=== PATIENT | male | born 1990 | race Caucasian/White ===

== ENCOUNTER → 2016-09-05 | Outpatient (REF) | payer OTHER ==
[2016-09-05 09:19] LABS: % NORMAL FORMS 37 % (>=4); IMMOTILITY 3 %; NON PROGRESSIVE MOTILITY (c) 11 %; PROGRESSIVE MOTILITY (a) 86 % (>=32); SPERM ABNORMAL FORMS WBC'S NOTED; SPERM# 92.1 M/Ejac (33-46); TOTAL MOTILITY 97 % (>=40)
[2016-09-05 09:20] LABS: TOTAL FUNCTIONAL 46.5 M/Ejac.; TOTAL PROGRESSIVE SPERM 79.2 M/Ejac.
== END ==
LOC: M SMT 08:52
PROVIDERS: ATTEND Urology
DX: N50.819 Testicular pain, unspecified (principal)

== ENCOUNTER → 2016-09-06 | Outpatient (CLI) | payer OTHER ==
--- NOTE | 2016-09-06 11:20 | REP ---
Clinical: Testicular pain. Technique: Arreola scale and color Doppler evaluation using linear and curved array transducer with color Doppler evaluation. Findings: The right testicle measures 4.1 x 1.8 x 2.9 cm and demonstrates satisfactory vascularity without torsion or acute inflammatory process. However, a vague area of decreased echogenicity involves approximately one third of the testicle and exhibits multiple calcifications up to 2 mm. These findings may reflect chronic changes related to prior insult and warrants followup unless prior examinations are made available and can confirm chronicity. Incidental note is made of a 5 mm simple right epididymal head cyst. No significant right hydrocele or varicoceles are identified. The left testicle measures 5.3 x 2.3 x 2.8 cm and is normal in contour, size, echogenicity without evidence for torsion, infectious/inflammatory process, or mass lesion without similar hypoechoic regions as compared to the right testicle. Incidental note is made of a small left hydrocele as well as simple 4 mm left epididymal head cyst. Impression: 1. Vague area of decreased echogenicity with calcifications involving the right testicle warrants comparison with prior examinations if available and follow-up to exclude an active infiltrating process. No discrete discernible mass is appreciated. 2. Normal appearance to the left testicle and epididymis. 3. Simple, solitary bilateral epididymal head cysts. 4. Small left hydrocele. Signed by Isidoro Devlin MD 09/06/2016 11:12 A
== END ==
LOC: M SMT 09:36 → EDUNIT# 10:00
PROVIDERS: ATTEND Urology
DX: N50.819 Testicular pain, unspecified (principal); N43.3 Hydrocele, unspecified; N50.3 Cyst of epididymis

== ENCOUNTER → 2016-10-30 | Outpatient (CLI) | payer OTHER ==
--- NOTE | 2016-11-07 00:58 | ECWPNPC ---
PATIENT NAME: KIM GARCIA : 1990 GENDER: MALE VISIT DATE: 10/30/2016 DISCHARGE DATE: 10/30/16 1618 VISIT LOCKED DATE TIME: PHYSICIAN: HELEN RICKETTS RESOURCE: HELEN RICKETTS REASON FOR APPOINTMENT 1. TESTICULAR PAIN HISTORY OF PRESENT ILLNESS NEW PATIENT CONSULT: 26 Y/O MALE REFERRED BY [facility] FOR EVALUATION OF PERSISTENT LEFT TESTICULAR PAIN.HAS ALWAYS HAD SENSITIVITY IN THAT AREA SINCE GRADESCHOOL AFTER INJURING TESTICLE ON PLAYGROUND.HAD EXCRUCIATING FLARE UP OF LEFT TESICULAR PAIN IN 2014 AND HAD SURGERY TO REMOVE EPIDIMAL CYST.PAIN HAS GOTTEN WORSE OVER THE PAST YEAR.HAS TRIALED CELEBREX,IBUPROFEN,NAPROXEN WITHOUT IMPROVEMENT.RECENTLY STARTED LYRICA 75MG BID 2 WEEKS AGO AND HASNT NOTICED IMPROVEMENT.STARTED ON CYMBALTA 60MG BID 2 WEEKS AGO WELL.THESE MEDICATIONS ARE PRESCRIBED BY PSYCHIATRY ON FT. DRUM.HAS A SURGICAL EVALUATION NEXT WEEK.DISCUSSED TREATMENT OPTIONS TO INCLUDE ILEOINGUINAL AND GENOFEMORAL BLOCK.BRIEFLY DISCUSSED DCS.DR. ESQUIVEL CAME IN TO MEET HIM AND HE WILL F/U WITH HIM IN A FEW WEEKS.RATING LEFT GROIN /TESTICLE PAIN 7/10.REPORTING NORMAL URINATION AND BM'S.REPORTS SOME DISCOMFORT WITH SEXUAL PERFORMANCE. WHEN DID YOUR PAIN FIRST START? . BRIEFLY DESCRIBE HOW YOUR PAIN STARTED? . HOW DOES YOUR PAIN CHANGE WITH TIME? . DOES YOUR PAIN AWAKEN YOU FROM SLEEP? . HOW MANY HOURS OF SLEEP DO YOU NORMALLY GET? . ANY DIAGNOSTIC TESTING? . FACILITY WHERE TESTS WERE DONE? ____. PAIN TREATMENT TREATMENT YES CANCER HAVE YOU EVER HAD ANY TYPE OF CANCER?NO NO. PAIN SCREENING: PATIENT HAS A COMPLAINT OF ACUTE OR CHRONIC PAIN YES FALL RISK SCREENING: SCREENING :NO FALLS IN THE PAST YEAR SHEN INVENTORY: QUESTIONNAIRE ASSESSEDTBD SCORE VALUE CALCULATED TBD CURRENT MEDICATIONS TAKING CYMBALTA 60 MG CAPSULE DELAYED RELEASE PARTICLES 1 CAPSULE ORALLY TWICE A DAY TAKING LYRICA 75 MG CAPSULE 1 CAPSULE ORALLY TWICE A DAY TAKING LUNESTA 1 MG TABLET 1 TABLET IMMEDIATELY BEFORE BEDTIME ORALLY ONCE A DAY NOT-TAKING CELEBREX 100 MG CAPSULE 1 CAPSULE ORALLY BID NOT-TAKING LEVAQUIN 500 MG TABLET 1 TABLET ORALLY ONCE A DAY MEDICATION LIST REVIEWED AND RECONCILED WITH THE PATIENT PAST MEDICAL HISTORY ANXIETY DEPRESSION ALLERGIES N.K.D.A. SURGICAL HISTORY EPIDYMITIS CYST REMOVAL 10/2014 FAMILY HISTORY FATHER: ALIVE MOTHER: ALIVE 1 SISTER(S) - HEALTHY. SOCIAL HISTORY GENERAL: PAIN CLINIC PFS, CLERGY, PUBLIC HEALTH REFERRALS PFS REFERRAL NEEDED?NO CLERGY REFERRAL NEEDED?NO PUBLIC HEALTH REFERRAL NEEDED?NO WAS THE PROVIDER NOTIFIED OF ANY PERTINENT INFO?NO PSYCHOLOGICAL HX TREATMENTYES HOW OFTEN AND HOW MUCH? ANXIETY/ANGER/POSSIBLE PTSD. TREATMENT IS EVERY 2 WEEKS ALCOHOL OR DRUG TREATMENTNO PATIENT: DENIES ABUSE OR MISUSE OF ANY MEDICATION, DENIES USE OF ANY ILLEGAL SUBSTANCE INCLUDING MARIJUANA OR COCAINE. ADVANCED DIRECTIVES HEALTH CARE PROXY?NO POWER OF MACHINE INSTALLER?NO SCREENING/ASSESSMENT TOOL NUTRITION ASSESSEDYES ARE YOU ON ANY SPECIAL DIET?NO ANY SIGNIFICANT CHANGES RELATED TO EATING, WEIGHT GAIN/LOSS, OR BOWEL HABITS?YES WEIGHT GAIN IF YES, IS YOUR PRIMARY CARE PROVIDER AWARE OF THIS?YES SPECIAL NEEDS HEARING AIDS: NO , WHEELCHAIR: NO , CONTACTS: NO , CANE: NO , GLASSES: NO , WALKER: NO , LEVEL OF CARE? SELF , DENTURES: NO , REFERRALS NEEDED: NO . TOBACCO USE ARE YOU A:FORMER SMOKER ADDITIONAL FINDINGS: TOBACCO USERCHEWS TOBACCO SMOKING CESSATION INFORMATION GIVEN PATIENT REFUSES CESSATION INFORMATION VAPORNO E-CIGARETTENO CAFFEINE CAFFEINE USE?YES HOW OFTEN AND HOW MUCH? 2 CUPS COFFEE/DAY RECREATIONAL DRUG USE DRUG USE?NO PATIENT DENIES ABUSE OR MISSUSED OF ANY MEDICATION. PATIENT DENIES USE OF ANY ILLEGAL SUBSTANCE INCLUDING MARIJUANA OR COCAINE. REVIEW OF SYSTEMS CONSTITUTIONAL: ANY CHANGE IN YOUR MEDICAL CONDITION? NO . CHILLS NO . FEVER NO . INFECTION: DO YOU HAVE NEW INFECTIONS? NO . DO YOU HAVE HISTORY OF MRSA? NO . MUSCULOSKELETAL: ANY NEW PATTERNS OF PAIN OR NUMBNESS? NO . SYTEMIC LUPUS NO . GASTROENTEROLOGY: ANY NEW CHANGE IN BOWEL CONTROL? NO . BARRETTS ESOPHAGUS NO . CIRRHOSIS NO . HEPATITIS NO . LIVER FAILURE NO . ACID REFLUX NO . UNEXPLAINED WEIGHT LOSS NO . GENITOURINARY: ANY NEW CHANGE IN BLADDER CONTROL? NO . IS THERE A CHANCE YOU COULD BE ? NO . HEMATOLOGY/LYMPH: DO YOU TAKE ANY BLOOD THINNERS? (FOR EXAMPLE- COUMADIN, PLAVIX, AGGRENOX, PLATEL, PRADAXA, OR XARELTO) NO . WHEN WAS YOUR LAST DOSE? DATE: TIME: . LOW PLATELET COUNT NO . SICKLE CELL DISEASE NO . VON WILLIEBRANDS NO . FACTOR V LEIDEN NO . THALLASEMIA NO . ANEMIA NO . EASY BRUISING NO . NEUROLOGY: HAVE YOU FALLEN IN THE PAST 6 MONTHS? NO . ANY NEW EXTREMITY NUMBNESS OR WEAKNESS? NO . HEAD INJURY NO . DEMENTIA NO . CEREBRAL PALSY NO . MULTIPLE SCLEROSIS NO . DIZZINESS NO . HEADACHE NO . STROKES NO . VERTIGO NO . CARDIOLOGY: DO YOU HAVE A PACEMAKER OR DEFIBRILLATOR? NO . ANGINA NO . HEART ATTACK NO . HEART SURGERY NO . CONGESTIVE HEART FAILURE/FLUID OVERLOAD NO . CHEST PAIN NO . HIGH BLOOD PRESSURE NO . IRREGULAR HEART BEAT NO . RESPIRATORY: HAVE YOU BEEN SICK IN THE PAST WEEK? NO . FEVER NO . FLU LIKE SYMPTOMS? NO . CPAP NO . BYPAP NO . ASTHMA NO . EMPHYSEMA NO . CHRONIC LUNG DISEASES NO . SHORTNESS OF BREATH ON EXERTION NO . DO YOU USE ANY TYPE OF TOBACCO (SMOKE, SMOKELESS, CHEW)? NO . COUGH NO . SNORING NO . INTEGUMENTARY: DO YOU HAVE ANY RASHES OR OPEN SORES? NO . ALLERGIC/IMMUNO: ARE YOU ALLERGIC TO SHELLFISH OR IV DYE? NO . ANY NEW ALLERGIES? NO . PSYCHIATRIC: DO YOU HAVE THOUGHTS OF HURTING YOURSELF OR SOMEONE ELSE? NO . ARE YOU ABUSED, NEGLECTED, OR IN AN UNSAFE ENVIRONMENT? NO . ENDOCRINOLOGY: ARE YOU DIABETIC? NO . THYROID DISORDER NO . OTHER: DO YOU NEED ANY PRESCRIPTIONS? NO . IF YES, PLEASE LIST: ____ . ANY NEW PROBLEMS WITH YOUR MEDICATIONS? NO . WHEN DID YOU LAST EAT? ____ . WHEN DID YOU LAST DRINK? ____ . WHAT DID YOU LAST DRINK? ____ . NAME OF PERSON DRIVING YOU HOME? ____ . DO YOU HAVE ANY OTHER QUESTIONS OR CONCERNS NO . REVIEWED BY: PROVIDER: HELEN AYON . VITAL SIGNS WT 206.6 LBS, HT 67 IN, BMI 32.35 INDEX, BP 146/98 MM HG, HR 82 /MIN, RR 16 /MIN, TEMP 96.4 F, OXYGEN SAT % 99, NA INITIALS TL 1459, REVIEWED BY: CS. EXAMINATION GENERAL EXAMINATION: GENERAL APPEARANCE:ALERT AND ORIENTED.NO ACUTE DISTRESS.. LUNGS:LUNG SOUNDS ARE CLEAR, GOOD AIR EXCHANGE. HEART:HEART RATE REGULAR.S1S2. ABDOMEN:SOFT, NON-TENDER/NON-DISTENDED, BOWEL SOUNDS PRESENT. MALE GENITOURINARY:NORMAL EXTERNAL MALE GENITALIA., NO SCROTAL MASSES.NONTENDER.. SCROTAL [id number] LEFT HYDROCELE.SIMPLE,SOLITARY BILATERAL EPIDIDYMAL CYSTS. ASSESSMENTS LEFT TESTICULAR PAIN - N50.812 (PRIMARY) TREATMENT LEFT TESTICULAR PAIN NOTES: CONTINUE MEDICATION MANAGEMENT W FT. DRUM. PROCEDURE CODES FA211 ESTABILISHED PATIENT [facility] CHARGE DISPOSITION & COMMUNICATION FOLLOW UP [address] ESQUIVEL ELECTRONICALLY SIGNED BY NANY BILL ON 11/06/2016 AT 12:47 PM EDT DISCLAIMER : THIS IS A VISIT SUMMARY EXTRACTED FROM THE [facility] CHART. IT IS NOT A COPY OF THE [facility] PROGRESS NOTE. SELAM
== END ==
LOC: M PAIN 15:20
PROVIDERS: ATTEND Nurse Practitioner Family
DX: G89.29 Other chronic pain (principal); N50.812 Left testicular pain; F41.9 Anxiety disorder, unspecified; F32.9 Major depressive disorder, single episode, unspecified; Z87.891 Personal history of nicotine dependence; Z79.899 Other long term (current) drug therapy

== ENCOUNTER → 2016-11-28 | Outpatient (CLI) | payer OTHER ==
--- NOTE | 2016-12-12 02:38 | ECWPNPC ---
PATIENT NAME: KIM GARCIA : 1990 GENDER: MALE VISIT DATE: 11/28/2016 DISCHARGE DATE: 11/28/16 1142 VISIT LOCKED DATE TIME: PHYSICIAN: KAYLEE ESQUIVEL RESOURCE: KAYLEE ESQUIVEL REASON FOR APPOINTMENT 1. TESTICULAR PAIN HISTORY OF PRESENT ILLNESS HISTORY OF PRESENT ILLNESS: PAIN THE PATIENT DESCRIBES THE PAIN... 26 YEAR OLD MALE PATIENT WITH HISTORY OF CHRONIC TESTICULAR PAIN. PATIENT DESCRIBES THE PAIN SHARP, THROBBING, SHOOTING, AND HAVING IT ALL THE TIME WITH A PAIN SCORE OF 7/10. PATIENT STATES THAT HIS PAIN STARTED ROUGHLY 8 MONTHS AGO AND HE NOT SURE WHAT STARTED THE PAIN. PATIENT REPORTS HAVING A CYST REMOVED IN 2014 BUT THE PAIN STARTED MANY MONTHS AFTER. MR. GARCIA HAS SEEN A UROLOGIST WHO REFERRED HER TO THE PAIN CLINIC. CURRENTLY THE PATIENT IS USING CYMBALTA AND LYRICA WHICH HE STATES AID IN HIS MOOD BUT DOES NOT HELP MUCH HE WOULD LIKE WITH THE PAIN. PATIENT STATES HE HAS NOT TRIED TOPICAL PRODUCTS. PATIENT DENIES UNEXPLAINABLE WEIGHT LOSS, FEVER, CHILLS, NEW CHANGES ON HER URINARY OR BOWEL CONTROL. FALL RISK SCREENING: SCREENING :NO FALLS IN THE PAST YEAR CURRENT MEDICATIONS TAKING LYRICA 150 MG CAPSULE 1 CAPSULE ORALLY TWICE A DAY TAKING LUNESTA 1 MG TABLET 1 TABLET IMMEDIATELY BEFORE BEDTIME ORALLY ONCE A DAY TAKING CYMBALTA 30 MG CAPSULE DELAYED RELEASE PARTICLES 3 CAPSULE ORALLY DAILY NOT-TAKING CYMBALTA 60 MG 1 TABLET PO ONCE DAILY NOT-TAKING CELEBREX 100 MG CAPSULE 1 CAPSULE ORALLY BID NOT-TAKING LEVAQUIN 500 MG TABLET 1 TABLET ORALLY ONCE A DAY MEDICATION LIST REVIEWED AND RECONCILED WITH THE PATIENT PAST MEDICAL HISTORY ANXIETY DEPRESSION ALLERGIES N.K.D.A. SURGICAL HISTORY EPIDYMITIS CYST REMOVAL 10/2014 FAMILY HISTORY FATHER: ALIVE 55 YRS MOTHER: ALIVE 53 YRS 2 SISTER(S) - HEALTHY. SOCIAL HISTORY GENERAL: TOBACCO USE ADDITIONAL FINDINGS: TOBACCO USERCHEWS TOBACCO ARE YOU A:FORMER SMOKER VAPORNO SMOKING CESSATION INFORMATION GIVEN PATIENT REFUSES CESSATION INFORMATION E-CIGARETTENO RECREATIONAL DRUG USE PATIENT DENIES ABUSE OR MISSUSED OF ANY MEDICATION. PATIENT DENIES USE OF ANY ILLEGAL SUBSTANCE INCLUDING MARIJUANA OR COCAINE. DRUG USE?NO CAFFEINE HOW OFTEN AND HOW MUCH? 2 CUPS COFFEE/DAY CAFFEINE USE?YES PSYCHOLOGICAL HX HOW OFTEN AND HOW MUCH? ANXIETY/ANGER/POSSIBLE PTSD. TREATMENT IS EVERY 2 WEEKS TREATMENTYES PAIN CLINIC PFS, CLERGY, PUBLIC HEALTH REFERRALS CLERGY REFERRAL NEEDED?NO WAS THE PROVIDER NOTIFIED OF ANY PERTINENT INFO?NO PFS REFERRAL NEEDED?NO PUBLIC HEALTH REFERRAL NEEDED?NO PFS REFERRAL NEEDED?NO CLERGY REFERRAL NEEDED?NO PUBLIC HEALTH REFERRAL NEEDED?NO WAS THE PROVIDER NOTIFIED OF ANY PERTINENT INFO?YES REVIEWED BY: CONRADO. PATIENT: DENIES ABUSE OR MISUSE OF ANY MEDICATION, DENIES USE OF ANY ILLEGAL SUBSTANCE INCLUDING MARIJUANA OR COCAINE, ____. ADVANCED DIRECTIVES HEALTH CARE PROXY?NO POWER OF SYSTEM MANAGER?NO HOSPITALIZATION/MAJOR DIAGNOSTIC PROCEDURE NO HOSPITALIZATION HISTORY. REVIEW OF SYSTEMS CONSTITUTIONAL: ANY CHANGE IN YOUR MEDICAL CONDITION? NO . CHILLS NO . FEVER NO . INFECTION: DO YOU HAVE NEW INFECTIONS? NO . DO YOU HAVE HISTORY OF MRSA? NO . MUSCULOSKELETAL: ANY NEW PATTERNS OF PAIN OR NUMBNESS? NO . GASTROENTEROLOGY: ANY NEW CHANGE IN BOWEL CONTROL? NO . GENITOURINARY: ANY NEW CHANGE IN BLADDER CONTROL? NO . IS THERE A CHANCE YOU COULD BE ? NO . HEMATOLOGY/LYMPH: DO YOU TAKE ANY BLOOD THINNERS? (FOR EXAMPLE- COUMADIN, PLAVIX, AGGRENOX, PLATEL, PRADAXA, OR XARELTO) NO . WHEN WAS YOUR LAST DOSE? DATE: TIME: . NEUROLOGY: HAVE YOU FALLEN IN THE PAST 6 MONTHS? NO . ANY NEW EXTREMITY NUMBNESS OR WEAKNESS? NO . CARDIOLOGY: DO YOU HAVE A PACEMAKER OR DEFIBRILLATOR? NO . RESPIRATORY: HAVE YOU BEEN SICK IN THE PAST WEEK? NO . FEVER NO . FLU LIKE SYMPTOMS? NO . COUGH NO . INTEGUMENTARY: DO YOU HAVE ANY RASHES OR OPEN SORES? NO . ALLERGIC/IMMUNO: ARE YOU ALLERGIC TO SHELLFISH OR IV DYE? NO . ANY NEW ALLERGIES? NO . PSYCHIATRIC: DO YOU HAVE THOUGHTS OF HURTING YOURSELF OR SOMEONE ELSE? NO . ARE YOU ABUSED, NEGLECTED, OR IN AN UNSAFE ENVIRONMENT? NO . ENDOCRINOLOGY: ARE YOU DIABETIC? NO . OTHER: DO YOU NEED ANY PRESCRIPTIONS? NO . IF YES, PLEASE LIST: ____ . ANY NEW PROBLEMS WITH YOUR MEDICATIONS? NO . WHEN DID YOU LAST EAT? ____ . WHEN DID YOU LAST DRINK? ____ . WHAT DID YOU LAST DRINK? ____ . NAME OF PERSON DRIVING YOU HOME? ____ . DO YOU HAVE ANY OTHER QUESTIONS OR CONCERNS YES, PT STATES THAT HE IS UNCOMFORTABLE AND WOULD LIKE TO HAVE INJECTION JEANETTE. PT STATES THAT HE USES SMOKELESS TOBACCO AND REFUSES ANY SMOKING CESSATION COUSELING AT THIS TIME . REVIEWED BY: PROVIDER: KAYLEE ESQUIVEL MD . VITAL SIGNS WT 206.6 LBS, HT 67 IN, BMI 32.35 INDEX, BP 141/89 MM HG, HR 79 /MIN, RR 16 /MIN, TEMP 99.0 F, OXYGEN SAT % 98%, SAFE IN ENV? (Y/N) Y, NA INITIALS SC 15:45, REVIEWED BY: CONRADO. EXAMINATION : PATIENT IS ALERT O X 3 AND COOPERATIVE. TENDERNESS IN THE TESTICULAR AREA. SWELLS WITH INCREASED ACITIVTY. ASSESSMENTS TESTICULAR PAIN, UNSPECIFIED - N50.819 (PRIMARY) TREATMENT TESTICULAR PAIN, UNSPECIFIED NOTES: WE DISCUSSED SEVERAL ISSUES WITH MR. GARCIA'S PAIN MANAGEMENT CASE. I WAS WITH THE PATIENT FOR OVER 45 MINUTES DISCUSSING POSSIBLE INJECTION AND INTERVENTIONS AND DISCUSSING THE CASE WITH DR. NATHAN IN COORDINATION OF HIS CARE. AT HIS TIME THE PATIENT WILL CONTINUE TO USE CYMBALTA AND LYRICA FOR THE NEUROLOGICAL PAIN. PATIENT WAS ADVISED TO TRY TOPICAL OINTMENTS TO SEE IF THAT WILL AID IN PAIN RELIEF. WE DISCUSSED IN DETAIL THE DCS, I FEEL THE PATIENT SHOULD SEE A UROLOGIST FOR AN INJECTION IN THE TESTICLE. AFTER DISCUSSING THE DCS THE PATIENT STATES HE WILL CONSIDER IT BUT DUE TO HIS JOB HE WOULD NOT LIKE TO MOVE FORWARD WITH THE DCS AT THIS TIME. MR. GARCIA WOULD LIKE TO VIEW ALL OF HIS OPTIONS FOR THIS CHRONIC PAIN BEFORE MOVING FORWARD WITH A DECISION. AFTER SPEAKING WITH DR. SMALLS I WILL REFER THE PATIENT TO A PAIN CLINIC THAT HAS EXPERIENCE INJECTING IN THE TESTICULAR AREA FOR CHRONIC TESTICULAR PAIN. INSTRUCTIONS WERE GIVEN, QUESTIONS WERE ANSWERED, PATIENT REPORTS UNDERSTANDING AND AGREES WITH THE PLAN. I, BYRON LEAL, DOCUMENTED THE ABOVE INFORMATION ACTING A SCRIBE FOR DR. ESQUIVEL. I HAVE REVIEWED THE ABOVE DOCUMENT, WRITTEN BY BYRON TAMEZ AND I VERIFY THAT IT IS ACCURATE. DEAR DR. FARNSWORTH:THANK YOU FOR YOUR KIND REFERRAL OF MR. GARCIA. YOU WANT TO DISCUSS HER CASE WITH ME PLEASE CALL ME AT THE PAIN CENTER AT [phone]. SINCERELY,KAYLEE ESQUIVEL, [facility]. PROCEDURE CODES FA211 ESTABILISHED PATIENT [facility] CHARGE [id number] DOC MEDS VERIFIED W/PT OR RE G8730 PAIN ASSESS POS TOOL F/U PLAN DOC DISPOSITION & COMMUNICATION FOLLOW UP 3 WEEKS ELECTRONICALLY SIGNED BY KAYLEE ESQUIVEL MD ON 12/11/2016 AT 01:50 PM EDT DISCLAIMER : THIS IS A VISIT SUMMARY EXTRACTED FROM THE [facility] CHART. IT IS NOT A COPY OF THE [facility] PROGRESS NOTE. SELAM
== END ==
LOC: M PAIN 15:40
PROVIDERS: ATTEND Anesthesiology
DX: G89.29 Other chronic pain (principal); N50.819 Testicular pain, unspecified; F41.9 Anxiety disorder, unspecified; F32.9 Major depressive disorder, single episode, unspecified; F17.228 Nicotine dependence, chewing tobacco, with other nicotine-induced disorders; Z79.899 Other long term (current) drug therapy